=== PATIENT | female | born 1985 | race Asian ===

== ENCOUNTER 2023-01-12 04:35 | Day surgery (SDC) | payer OTHER ==
[2023-01-08 16:15] VITALS: BMI 29.5
[2023-01-12 11:50] LABS: EPI CELLS >36 /uL (0-25.1); HYALINE CASTS 9 /uL (0-3.1); PH,URINE 6.5 (5.0-8.0); URINE APPEARANCE CLEAR; URINE BACTERIA 324 /uL (0-1359); URINE BILIRUBIN NEGATIVE (NEGATIVE); URINE COLOR YELLOW; URINE GLUCOSE (UA) NEGATIVE (NEGATIVE); URINE KETONE NEGATIVE (NEGATIVE); URINE LEUK ESTERASE 2+ (NEGATIVE); URINE NITRITE NEGATIVE (NEGATIVE); URINE PROTEIN NEGATIVE (NEGATIVE); URINE RBC 16 /uL (0-23.9); URINE UROBILINOGEN 0.2 mg/dL (0.2-1.0); URINE WBC 351 /uL (0-25.8)
[2023-01-12] MEDS ORDERED: LIDOCAINE HCL 1%, 10 MG/ML (20ML VIAL) ONE (12:23)
[2023-01-12] MEDS ORDERED: MIDAZOLAM HCL 2 MG/2 ML SINGLE DOSE VIAL ONE ×2 (13:11→13:16)
[2023-01-12] MEDS ORDERED: LIDOCAINE HCL 1%, 10 MG/ML (20ML VIAL) NR ONE ×3 (13:26)
[2023-01-12] MEDS ORDERED: oxyCODONE HCL 5 MG TABLET PO PRN (14:00)
[2023-01-12] MEDS ORDERED: ONDANSETRON 4 MG/2 ML VIAL IVPUSH PRN (14:00)
[2023-01-12 15:07] VITALS: RESP 16
[2023-01-12 16:10] VITALS: BP 121/55; PULSE 61; TEMP 97.2
== END 2023-01-12 16:30 | disposition home or self-care (01) ==
LOC: JASU-SURG 04:35
PROVIDERS: ATTEND Surgery
PROC: 0HBT0ZX Excision of Right Breast, Open Approach, Diagnostic (ICD-10-PCS; principal; 2023-01-12 12:30)
DX: D24.1 Benign neoplasm of right breast (principal)
CPT/HCPCS: 81003; 81025; 94760